=== PATIENT | female | born 1990 | race Caucasian/White ===

== ENCOUNTER 2024-02-11 23:35 | Emergency (ER) | payer SELFPAY ==
--- OUTSIDE RECORDS SUMMARY | 2024-02-11 23:38 | XMS REPORT | Continuity of Care Document ---
Author Name Unknown Address [address] [facility] [address] [place] [address] [facility] [address] [facility] [address] [place] [address] Care Team Providers Care Pit Furnace Melter Name Role Phone PCP, PATIENT DOES NOT HAVE A Primary Care Physic vilma Unavailable PETER BUTTERFIELD Attending Clinician Unavailable Peter Bettencourt Attending Clinician [phone] Unknown, Attending Attending Clinician Unavailab viki UNKNOWN, ATTENDING Attending Clinician Unavailab Yaniv Tovar MD Attending Clinician [phone] YANIV MARQUEZ Attending Clinician Unavailable Doctor Unassigned, [place] Attending Clinician U navailable GC_ANNIC_Adrián_G Attending Clinician Unavail able GC_ANNIC_Adrián_G Admitting Clinician Unavail able Payers Payer Name Policy Type Policy Number Effective Date Expirati on Date Source [facility] [id number] 00:00:00 [place] [id number] Problems Condition Name Condition Details Condition Category Status Onset Date Resolution Date Last Treatment Date Treating Clinician Comments Source General counseling and advice for contracept evelyn management General counseling and advice for contracept evelyn management Disease Active 08-27 00:00: 00 Overview: Formattin g of this note might be different from the original. ICD10 Diagnosis Term [employer] [facility] Immune to varicella Immune to varicella Disease Active 08-27 00:00: 00 [facility] Not immune to rubella Not immune to rubella Disease Active 08-27 00:00: 00 Overview: Formattin g of this note might be different from the original. MMR given 3. RTC in 1 month for titerICD1 0 Diagnosis Term [employer] [facility] Anemia Anemia Disease Active 08-27 00:00: 00 Overview: Formattin g of this note might be different from the original. ICD10 Diagnosis Term [employer] [facility] Tobacco use disorder Tobacco use disorder Disease Active 08-27 00:00: 00 [facility] Generalize d anxiety disorder Generalize d anxiety disorder Disease Active 08-27 00:00: 00 [facility] Depression Depression Disease Active 08-27 00:00: 00 [facility] Allergies, Adverse Reactions, Alerts Allergy Name Allergy Type Status Severity Reaction(s) Onset Date Inactive Date Treating Clinician Comments Source SULFA (SULFONA MIDE ANTIBIOT ICS) Drug Class Active Rash 07-15 00:00: 00 [facility] Sulfa (Sulfona mide Antibiot ics) Propensi ty to adverse reaction s Active Rash 07-15 00:00: 00 [facility] Social History Social Habit Start Date Stop Date Quantity Comments Source History of tobacco use Cigarette Smoker [facility] Gender identity [facility] Alcohol intake 2022-11-07 00:00:00 2022-11-07 00:00:00 Current drinker of alcohol (finding) [facility] History of Social function 2022-11-07 00:00:00 2022-11-07 00:00:00 [facility] Exposure to SARS-CoV-2 (event) 2022-05-18 00:00:00 2022-05-28 14:14:00 Not sure [facility] Tobacco use and exposure 2022-05-28 00:00:00 2022-05-28 00:00:00 Smokeless tobacco non-user [facility] Alcohol Comment 2022-05-28 00:00:00 2022-05-28 00:00:00 ocassional [facility] Cigarettes smoked current (pack per day) - Reported 2022-05-28 00:00:00 2022-05-28 00:00:00 [facility] Cigarette pack-years 2022-05-28 00:00:00 2022-05-28 00:00:00 [facility] Sex Assigned At 1990 00:00:00 1990 00:00:00 [facility] Smoking Status Start Date Stop Date Source Ex-smoker 2022-05-28 00:00:00 2022-05-28 00:00:00 [facility] Occasional tobacco smoker 2012-08-27 00:00:00 [facility] Medications Ordered Medication Name Filled Medication Name Start Date Stop Date Current Medication? Ordering Clinician Indication Dosage Frequency Signature (SIG) Comments Components Source benzonatate 100 mg capsule 05-28 00:00: 00 Yes [id number] 200mg Take 2 capsules by mouth every 8 (eight) hours as needed for Cough. [facility] amoxicillin -clavulanat e (AUGMENTIN) 875-125 mg per tablet 05-28 00:00: 00 06-05 05:59 :00 No [id number] 1{tbl} Take 1 tablet by mouth in the morning and 1 tablet in the evening. Do all this for 7 days. [facility] norethindro ne (MICRONOR, 28,) 0.35 mg tablet 08-27 00:00: 00 Yes [id number] .35mg Take 1 Tab by mouth daily. [facility] norethindro ne (MICRONOR-2 8) 0.35 mg tablet 07-18 00:00: 00 Yes .35mg Take 1 Tab by mouth daily. [facility] Vital Signs Vital Name Observation Time Observation Value Comments S hanh Systolic blood pressure 2022-11-07 18:11:00 111 mm[Hg] [facility] Diastolic blood pressure 2022-11-07 18:11:00 72 mm[Hg] [facility] Heart rate 2022-11-07 18:11:00 97 /min [facility] Body temperature 2022-11-07 18:11:00 36.67 Sunitha [facility] Body height 2022-11-07 18:11:00 154.9 cm [facility] Body weight 2022-11-07 18:11:00 119.704 kg [facility] BMI 2022-11-07 18:11:00 49.86 kg/m2 [facility] Oxygen saturation in Arterial blood by Pulse oximetry 2022-11-07 18:11:00 98 /min [facility] Systolic blood pressure 2022-05-28 20:29:00 129 mm[Hg] [facility] Diastolic blood pressure 2022-05-28 20:29:00 84 mm[Hg] [facility] Heart rate 2022-05-28 20:29:00 98 /min [facility] Body temperature 2022-05-28 20:29:00 37.06 Sunitha [facility] Respiratory rate 2022-05-28 20:29:00 18 /min [facility] Body height 2022-05-28 20:29:00 154.9 cm [facility] Body weight 2022-05-28 20:29:00 123.923 kg [facility] BMI 2022-05-28 20:29:00 51.62 kg/m2 [facility] Oxygen saturation in Arterial blood by Pulse oximetry 2022-05-28 20:29:00 98 /min [facility] Procedures Procedure Date / Time Performed Performing Clinicia n Source POCT URINALYSIS 2022-11-07 18:26:00 [facility] 2022-05-28 20:33:00 Unknown, Atte nding [facility] ASSIGNMENT OF BENEFITS 2022-05-28 20:13:48 Docto r Unassigned, [place] [facility] Encounters Start Date/Time End Date/Time Encounter Type Admission Type Attending Clinicians Care Facility Care Department Encounter ID Source 2022-11-07 13:00:00 2022-11-07 13:54:55 Outpatient R MARK BUTTERFIELDJUAN [facility] [id number] [facility] 2022-11-07 13:00:00 2022-11-07 13:20:00 Urgent Care Peter Butterfield Unknown, Attending [facility] 1..840.114 [id number] [facility] 2022-08-26 12:40:00 2022-08-26 12:40:00 Outpatient R UNKNOWN, ATTENDING [facility] [id number] [facility] 2022-05-28 15:20:00 2022-05-28 15:40:00 Urgent Care Yaniv Marquez, Attending [facility] 1..840.114 [id number] [facility] 2022-05-28 15:20:00 2022-05-28 14:56:21 Outpatient R YANIV MARQUEZ [facility] [id number] [facility] 2022-05-28 00:00:00 2022-05-28 00:00:00 Orders Only Doctor Unassigned, [place] [facility] 1..840.114 [id number] [facility] 2022-05-28 00:00:00 2022-05-28 00:00:00 Letter (Out) Yaniv Marquez [facility] [id number] [id number] [facility] 2022-04-17 00:00:00 2022-04-17 00:00:00 Outpatient GC_CJOMC_ Adrián_G [facility] [id number] [facility] 2020-09-02 04:10:00 2020-09-02 04:10:00 Outpatient ROHITH_SWJASONOMC_ Adrián_G [facility] [id number] [facility] Results Test Description Test Time Test Comments Results Result Co mments Source [id number] 20:40:45* Test Item Value Reference Range Interpretation Comme nts POCT Molecular Strep (test c ode = 04752-0) Negative Negative Lab Interpretation (test cod e = [id number]) Normal [facility]
[2024-02-11] MEDS ORDERED: TDAP (DIPHTH,PERTUSS(ACELL),TET VAC) 0.5 ML VIAL IMVAC ONE (23:45)
--- NOTE | 2024-02-11 23:46 | EDPHYS ---
Physician Documentation [facility] Name: Desiree Aj Age: 33 yrs Sex: Female : 1990 Arrival Date: 02/11/2024 Time: 23:35 Bed Waiting Private MD: ED Physician Darwin Burnett HPI: 02/10 23:44 This 33 yrs old Female presents to ER via Unassigned with complaints of Puncture Wound kb To Foot. 23:44 Pt is a 33 year old female who presents for puncture wound to left foot that occurred kb at 1500 after stepping on a nail. States she came in for a tetanus shot. 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 - Infectious Disease History:: Denies. - Social history:: Smoking status: Patient denies any tobacco usage or history of. Patient/guardian denies using alcohol, street drugs. ROS: 23:42 Constitutional: As per HPI kb Exam: 23:42 Constitutional: This is a well developed, well nourished patient who is awake, alert, kb and in no acute distress. Head/Face: Normocephalic, atraumatic. ENT: Moist Mucous membranes Respiratory: Respirations even and unlabored. No increased work of breathing. Talking in full sentences MS/ Extremity: Pulses equal, no cyanosis. Neurovascular intact. Full, normal range of motion. Neuro: Awake and alert, GCS 15, oriented to person, place, time, and situation. 23:42 Skin: injury, puncture(s), that are superficial, of the arch of left foot, Vital Signs: 23:42 BP 132 / 83; Pulse 83; Resp 17 S; Temp 97.5(O); Pulse Ox 99% on R/A; Weight 117.93 kg lg3 (R); Height 5 ft. 1 in. (R); Pain 4/10; 23:42 Body Mass Index 49.13 (117.93 kg, 154.94 cm) lg3 23:42 Pain Scale: Adult lg3 MDM: 23:38 Medical Screening Exam initiated kb 23:43 Differential diagnosis: foreign body, puncture. Data reviewed: vital signs, nurses kb notes. Test considered but Not performed: X-ray: xray considered but entire nail removed from foot after it happened. Counseling: I had a detailed discussion with the patient and/or guardian regarding the historical points, exam findings, and any diagnostic results supporting the discharge/admit diagnosis, the need for outpatient follow up, a family practitioner, to return to the emergency department if symptoms worsen or persist or if there are any questions or concerns that arise at home. Administered Medications: 23:55 Drug: Boostrix Tdap IM 0.5 ml IM once; as a single dose Route: IM; Site: right deltoid; lg3 23:55 Follow up: Response: (VIS) Vaccine information sheet provided today. Questions and/or lg3 concerns addressed. VIS edition date: Nov 25, 2020.; No adverse reaction Disposition: 02/11 04:56 Co-signature as Attending Physician, Darwin Burnett MD I agree with the assessment sp4 and plan of care. I reviewed the patient's care provided by the Advanced Practice Provider and agree with the diagnosis and treatment plan. Disposition Summary: 02/11/24 23:46 Discharge Ordered Notes: Location: Home kb Condition: Stable kb Diagnosis - Puncture wound without foreign body of foot kb Followup: kb - With: Emergency Department - When: As needed - Reason: Worsening of condition Followup: kb - With: Private Physician - When: 2 - 3 days - Reason: Recheck today's complaints, Continuance of care, Re-evaluation by your physician Discharge Instructions: - Discharge Summary Sheet kb - Puncture Wound, [id number] kb Forms: - Medication Reconciliation Form kb - Antibiotic Education kb - Prescription Opioid Use kb - Patient Portal Instructions kb - Leadership Thank You Letter kb Signatures: Trina Ellsworth FNP-C FNP-Marjan Currie RN RN Darwin Ventura MD MD sp4 Corrections: (The following items were deleted from the chart) 02/10 23:50 23:49 PMHx: None; lg3 lg3
--- NOTE | 2024-02-11 23:46 | ER ---
Nurse's Notes [facility] Name: Desiree Aj Age: 33 yrs Sex: Female : 1990 Arrival Date: 02/11/2024 Time: 23:35 Bed Waiting Private MD: Diagnosis: Puncture wound without foreign body of foot Presentation: 02/10 23:42 Chief complaint: Patient states: stepped on a nail with left heel around 1500 today. lg3 pain and redness to site. Coronavirus screen: Client denies travel out of the [place] in the last 14 days. At this time, the client does not indicate any symptoms associated with coronavirus-19. Ebola Screen: No symptoms or risks identified at this time. Initial Sepsis Screen: Does the patient meet any 2 criteria? No. Patient's initial sepsis screen is negative. Does the patient have a suspected source of infection? No. Patient's initial sepsis screen is negative. Risk Assessment: Do you want to hurt yourself or someone else? Patient reports no desire to harm self or others. Onset of symptoms was February 11, 2024. 23:42 Method Of Arrival: Ambulatory lg3 23:42 Acuity: [place] 5 lg3 Triage Assessment: 23:49 General: Appears in no apparent distress. comfortable, Behavior is calm, cooperative. lg3 Pain: Complains of pain in left foot. EENT: No deficits noted. No signs and/or symptoms were reported regarding the EENT system. Neuro: No deficits noted. Lubin Agitation-Sedation Scale (RASS): 0 - Alert and Calm Level of Consciousness is awake, alert, obeys commands, Oriented to person, place, time, situation. Cardiovascular: No deficits noted. Denies chest pain, shortness of breath, Capillary refill < 3 seconds Clubbing of nail beds is absent JVD is absent Patient's skin is warm and dry. Respiratory: No deficits noted. Airway is patent Respiratory effort is even, unlabored, Respiratory pattern is regular, symmetrical. GI: No deficits noted. No signs and/or symptoms were reported involving the gastrointestinal system. : No deficits noted. No signs and/or symptoms were reported regarding the genitourinary system. Derm: Skin is intact, is healthy with good turgor, Skin is dry, Skin is normal, Skin temperature is warm Wound noted left foot Wound is puncture. Musculoskeletal: No deficits noted. No signs and/or symptoms reported regarding the musculoskeletal system. Circulation, motion, and sensation intact. Range of motion: intact in all extremities. 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 - Infectious Disease History:: Denies. - Social history:: Smoking status: Patient denies any tobacco usage or history of. Patient/guardian denies using alcohol, street drugs. Screenin:54 [facility] ED Fall Risk Assessment (Adult) History of falling in the last 3 months, lg3 including since admission No falls in past 3 months (0 pts) Confusion or Disorientation No (0 pts) Intoxicated or Sedated No (0 pts) Impaired Gait No (0 pts) Mobility Assist Device Used No (0 pt) Altered Elimination No (0 pt) Score/Fall Risk Level 0 - 2 = Low Risk Oriented to surroundings, Maintained a safe environment, Educated pt \T\ family on fall prevention, incl call for assistance when getting out of bed, Assessed \T\ reinforced patient's understanding of fall precautions. Abuse screen: Denies threats or abuse. Denies injuries from another. Nutritional screening: No deficits noted. Tuberculosis screening: No symptoms or risk factors identified. Assessment: 23:54 General: see triage assessment. lg3 Vital Signs: 23:42 BP 132 / 83; Pulse 83; Resp 17 S; Temp 97.5(O); Pulse Ox 99% on R/A; Weight 117.93 kg lg3 (R); Height 5 ft. 1 in. (R); Pain 4/10; 23:42 Body Mass Index 49.13 (117.93 kg, 154.94 cm) lg3 23:42 Pain Scale: Adult 3 ED Course: 23:38 Patient arrived in ED. im 23:38 Trina Ellsworth FNP-C is PHCP. kb 23:38 Darwin Burnett MD is Attending Physician. kb 23:44 Triage completed. lg3 23:49 Arm band placed on right wrist. lg3 23:54 Patient has correct armband on for positive identification. lg3 23:54 No provider procedures requiring assistance completed. Patient did not have IV access lg3 during this emergency room visit. Administered Medications: 23:55 Drug: Boostrix Tdap IM 0.5 ml IM once; as a single dose Route: IM; Site: right deltoid; lg3 23:55 Follow up: Response: (VIS) Vaccine information sheet provided today. Questions and/or lg3 concerns addressed. VIS edition date: Nov 25, 2020.; No adverse reaction Medication: 23:54 Vaccine Information Statement (VIS) provided today. Questions and/or concerns lg3 addressed. VIS edition date: November 25, 2020. Outcome: 23:46 Discharge ordered by . kb 23:54 Discharged to home ambulatory, lg3 23:54 Condition: stable 23:54 Discharge instructions given to patient, Instructed on discharge instructions, follow up and referral plans. Demonstrated understanding of instructions, follow-up care, 23:55 Patient left the ED. lg3 Signatures: Trina Ellsworth, BRY-C ELECTRONIC SECURITY SPECIALIST-Marjan Currie RN RN lg3 Yady Márquez Corrections: (The following items were deleted from the chart) 23:50 23:49 PMHx: None; lg3 lg3
[2024-02-12 06:47] VITALS: BP 132/83; TEMP 97.5; O2SAT 99
== END 2024-02-11 23:55 | disposition home or self-care (01) ==
LOC: ER 23:35
DX: S91.332A Puncture wound without foreign body, left foot, initial encounter (principal)
CPT/HCPCS: 96372; 99284